=== PATIENT | male | born 1970 | race Caucasian/White ===

== ENCOUNTER 2022-10-16 14:58 | Emergency (ER) | payer BC ==
[2022-10-16 15:31] LABS: Urine Blood Negative (Negative); Urine Glucose Negative (Negative); Urine Protein Negative (Negative); Urine Specific Gravity 1.015 (1.005-1.030); Urine pH 6.5 (5.0-7.0)
[2022-10-16] MEDS ORDERED: FAMOTIDINE 20 MG/2 ML VIAL IV ONE (15:34)
[2022-10-16] MEDS ORDERED: NA CHLORIDE 0.9% 1,000 ML ONE (15:34)
[2022-10-16] MEDS ORDERED: KETOROLAC 30 MG/ML INJ ONE (15:34)
[2022-10-16 15:41] LABS: Urine Bacteria None Seen /HPF (<20); Urine Mucus Slight /HPF (None Seen); Urine RBC <5 /HPF (None Seen)
[2022-10-16 15:47] LABS: Absolute Lymphocytes (CBC) 1.8 K/uL (0.7-4.9); Hematocrit 42.9 % (39.6-49.0); MCV 92.8 fL (80-100); MPV 7.5 fL (7.6-11.3); RBC Red Blood Cell Count 4.62 M/uL (4.33-5.43)
[2022-10-16 15:58] LABS: Albumin 3.6 g/dL (3.4-5.0); Bilirubin Total 0.3 mg/dL (0.2-1.0); Potassium 3.9 mmol/L (3.5-5.1); Protein, Total 6.8 g/dL (6.4-8.2)
--- NOTE | 2022-10-16 17:08 | RAD REPORT ---
EXAM DESCRIPTION: CTAbdomen Pelvis W Contrast - 10/16/2022 4:34 pm CLINICAL HISTORY: Abdominal pain. RLQ abdominal pain COMPARISON: <Comparisons> TECHNIQUE: Biphasic CT imaging of the abdomen and pelvis was performed with 100 ml non-ionic IV cont rast. All CT scans are performed using dose optimization technique as appropriate and may include automated exposure control or mA/KV adjustment according to patient size. FINDINGS: The lung bases are clear. The liver, spleen, pancreas, adrenal glands and kidneys are within normal limits. No bowel obstruction, free air, free fluid or abscess. There is edema and prominent lymph nodes in th e small bowel mesenteric noted. Very small appendix. No evidence of significant lymphadenopathy. No suspicious bony findings. IMPRESSION: Moderate mesenteric panniculitis pattern. Very small appendix is noted.
[2022-10-16] MEDS ORDERED: METRONIDAZOLE 500mg IVPB 500 MG/100 ML BAG IV ONE (17:16)
[2022-10-16] MEDS ORDERED: CIPROFLOXACIN 400mg IV 400 MG/200 ML BAG IV ONE (17:16)
--- NOTE | 2022-10-16 17:58 | ER ---
Nurse's Notes [facility] Name: Luke Holloway Age: 52 yrs Sex: Male : 1970 Arrival Date: 10/16/2022 Time: 15:01 Bed 10 Private MD: Diagnosis: Lower abdominal pain, unspecified;Nonspecific mesenteric lymphadenitis Presentation: 10/16 15:10 Chief complaint: Patient states: RLQ pain X 3 days, yesterday when I lifted something iw it made the pain worse, pain is from right hip to lower abdomen. Coronavirus screen: At this time, the client does not indicate any symptoms associated with coronavirus-19. Ebola Screen: Patient negative for fever greater than or equal to 101.5 degrees Fahrenheit, and additional compatible Ebola Virus Disease symptoms Patient denies exposure to infectious person. Patient denies travel to an Ebola-affected area in the 21 days before illness onset. No symptoms or risks identified at this time. Initial Sepsis Screen: Does the patient meet any 2 criteria? No. Patient's initial sepsis screen is negative. Does the patient have a suspected source of infection? No. Patient's initial sepsis screen is negative. Risk Assessment: Do you want to hurt yourself or someone else? Patient reports no desire to harm self or others. Onset of symptoms was October 13, 2022. 15:10 Method Of Arrival: Ambulatory iw 15:10 Acuity: MICHAEL 3 iw Historical: - Allergies: 15:12 PENICILLINS; iw - Home Meds: 15:12 None [Active]; iw - PMHx: 15:12 None; iw - PSHx: 15:12 None; iw - Immunization history:: Client reports having NOT received the Covid vaccine. - Social history:: Smoking status: Patient reports the use of cigarette tobacco products, smokes one pack cigarettes per day. Screenin:[facility] ED Fall Risk Assessment (Adult) Score/Fall Risk Level 0 - 2 = Low Risk ll1 Oriented to surroundings, Maintained a safe environment, Educated pt \T\ family on fall prevention, incl call for assistance when getting out of bed, Hourly rounding (assess needs \T\ fall precautionary measures) done. Abuse screen: Denies threats or abuse. Nutritional screening: No deficits noted. Tuberculosis screening: No symptoms or risk factors identified. Assessment: 15:30 General: Appears in no apparent distress. Behavior is calm, cooperative, appropriate ll1 for age. Pain: Complains of pain in right lower quadrant Pain currently is 3 out of 10 on a pain scale. Quality of pain is described as aching. Neuro: No deficits noted. Cardiovascular: No deficits noted. GI: Abdomen is flat, Bowel sounds present X 4 quads. Abd is soft and non tender X 4 quads. Reports lower abdominal pain. 16:40 Reassessment: No changes from previously documented assessment. Patient and/or family ll1 updated on plan of care and expected duration. Pain level reassessed. Patient is alert, oriented x 3, equal unlabored respirations, skin warm/dry/pink. back from CT. 17:21 Reassessment: No changes from previously documented assessment. Patient and/or family ll1 updated on plan of care and expected duration. Pain level reassessed. Patient is alert, oriented x 3, equal unlabored respirations, skin warm/dry/pink. 17:57 Reassessment: No changes from previously documented assessment. Patient and/or family ll1 updated on plan of care and expected duration. Pain level reassessed. Patient is alert, oriented x 3, equal unlabored respirations, skin warm/dry/pink. 18:34 Reassessment: No changes from previously documented assessment. Patient and/or family ll1 updated on plan of care and expected duration. Pain level reassessed. Patient is alert, oriented x 3, equal unlabored respirations, skin warm/dry/pink. 19:04 Reassessment: No changes from previously documented assessment. Patient and/or family ll1 updated on plan of care and expected duration. Pain level reassessed. Patient is alert, oriented x 3, equal unlabored respirations, skin warm/dry/pink. Vital Signs: 15:10 BP 134 / 72; Pulse 71; Resp 16; Temp 99.0; Pulse Ox 99% on R/A; Weight 99.79 kg; Height iw 6 ft. 1 in. (185.42 cm); Pain 3/10; 18:34 BP 122 / 70; Pulse 65; Resp 16; Pulse Ox 98% ; Pain 0/10; ll1 15:10 Body Mass Index 29.03 (99.79 kg, 185.42 cm) iw ED Course: 15:01 Patient arrived in ED. mr 15:02 Brianne Guerra FNP-C [facility]. snw 15:02 Hung Moss MD is Attending Physician. snw 15:11 Triage completed. iw 15:11 Arm band placed on. iw 15:18 Krishan Jarvis, OSWALDO is Primary Nurse. ll1 15:30 Inserted saline lock: 22 gauge in left antecubital area, using aseptic technique. Blood ll1 collected. 16:36 CT Abd/Pelvis - IV Contrast Only In Process Unspecified. EDMS 16:39 No provider procedures requiring assistance completed. ll1 16:40 Patient has correct armband on for positive identification. Bed in low position. Call ll1 light in reach. Cardiac monitoring not applicable on this patient. 19:04 IV discontinued, intact, bleeding controlled, No redness/swelling at site. Pressure ll1 dressing applied. Administered Medications: 15:39 Drug: NS 0.9% 1000 ml Route: IV; Rate: 1 bolus; Site: left antecubital; ll1 17:20 Follow up: Response: No adverse reaction; IV Status: Completed infusion; IV Intake: ll1 1000ml 15:39 Drug: Pepcid (famotidine) 20 mg Route: IVP; Site: left antecubital; ll1 17:21 Follow up: Response: No adverse reaction ll1 15:39 Drug: TORadol - (ketorolac) 15 mg Route: IVP; Site: left antecubital; ll1 17:21 Follow up: Response: No adverse reaction; Pain is decreased; RASS: Alert and Calm (0) ll1 17:20 Drug: Flagyl (metroNIDAZOLE) 500 mg Volume: 100 ml; Route: IVPB; Rate: 200 ml/hr; ll1 Infused Over: 30 mins; Site: left antecubital; 17:56 Follow up: Response: No adverse reaction; IV Status: Completed infusion; IV Intake: ll1 100ml 17:57 Drug: Cipro (ciprofloxacin) 400 mg Volume: 200 ml; Route: IVPB; Infused Over: 60 mins; ll1 Site: left antecubital; 19:03 Follow up: Response: No adverse reaction; IV Status: Completed infusion; IV Intake: ll1 200ml Medication: 16:40 VIS not applicable for this client. ll1 Intake: 17:20 IV: 1000ml; Total: 1000ml. ll1 17:56 IV: 100ml; Total: 1100ml. ll1 19:03 IV: 200ml; Total: 1300ml. ll1 Outcome: 17:58 Discharge ordered by . amanda 19:04 Discharged to home ambulatory. ll1 19:04 Condition: stable 19:04 Discharge instructions given to patient, Instructed on discharge instructions, follow up and referral plans. no drinking with medication, no driving heavy equipment, medication usage, Demonstrated understanding of instructions, follow-up care, medications, Prescriptions given X 3. 19:04 Patient left the ED. 1 Signatures: Dispatcher [employer] EDMS Brianne Guerra, BEE[employer] CATTLE FARMER-C BEEF CATTLE FARMER-Sharon Gurrola Irene, RN OSWALDO iw Krishan Jarvis RN RN ll1
--- NOTE | 2022-10-16 17:58 | EDPHYS ---
Physician Documentation [facility] Name: Luke Holloway Age: 52 yrs Sex: Male : 1970 Arrival Date: 10/16/2022 Time: 15:01 Bed 10 Private MD: ED Physician Hung Moss HPI: 10/16 15:18 This 52 yrs old Male presents to ER via Ambulatory with complaints of Abdominal Pain. snw 15:18 The patient presents with abdominal pain in the lower abdomen, right lower quadrant. snw Onset: The symptoms/episode began/occurred acutely, 4 day(s) ago, and became persistent. The symptoms do not radiate. Associated signs and symptoms: Pertinent positives: tenderness to RLQ, mild wrap around pain. Severity of pain: At its worst the pain was moderate. The patient has not experienced similar symptoms in the past, but family has similar symptoms, son. The patient has not recently seen a physician. Historical: - Allergies: 15:12 PENICILLINS; iw - Home Meds: 15:12 None [Active]; iw - PMHx: 15:12 None; iw - PSHx: 15:12 None; iw - Immunization history:: Client reports having NOT received the Covid vaccine. - Social history:: Smoking status: Patient reports the use of cigarette tobacco products, smokes one pack cigarettes per day. ROS: 15:19 Constitutional: Negative for fever, chills, and weight loss, Eyes: Negative for injury, snw pain, redness, and discharge, ENT: Negative for injury, pain, and discharge, Neck: Negative for injury, pain, and swelling, Cardiovascular: Negative for chest pain, palpitations, and edema, Respiratory: Negative for shortness of breath, cough, wheezing, and pleuritic chest pain, Back: Negative for injury and pain, : Negative for injury, bleeding, discharge, and swelling, MS/Extremity: Negative for injury and deformity, Skin: Negative for injury, rash, and discoloration, Neuro: Negative for headache, weakness, numbness, tingling, and seizure, Psych: Negative for depression, anxiety, suicide ideation, homicidal ideation, and hallucinations. 15:19 Abdomen/GI: Positive for abdominal pain, worse on squatting, lifting, no noted protrusions. Exam: 15:17 Constitutional: This is a well developed, well nourished patient who is awake, alert, snw and in no acute distress. Head/Face: Normocephalic, atraumatic. Eyes: Pupils equal round and reactive to light, extra-ocular motions intact. Lids and lashes normal. Conjunctiva and sclera are non-icteric and not injected. Cornea within normal limits. Periorbital areas with no swelling, redness, or edema. ENT: Nares patent. No nasal discharge, no septal abnormalities noted. Tympanic membranes are normal and external auditory canals are clear. Oropharynx with no redness, swelling, or masses, exudates, or evidence of obstruction, uvula midline. Mucous membranes moist. Neck: Trachea midline, no thyromegaly or masses palpated, and no cervical lymphadenopathy. Supple, full range of motion without nuchal rigidity, or vertebral point tenderness. No Meningismus. Chest/axilla: Normal chest wall appearance and motion. Nontender with no deformity. No lesions are appreciated. Cardiovascular: Regular rate and rhythm with a normal S1 and S2. No gallops, murmurs, or rubs. Normal PMI, no JVD. No pulse deficits. Respiratory: Lungs have equal breath sounds bilaterally, clear to auscultation and percussion. No rales, rhonchi or wheezes noted. No increased work of breathing, no retractions or nasal flaring. Back: No spinal tenderness. No costovertebral tenderness. Full range of motion. Skin: Warm, dry with normal turgor. Normal color with no rashes, no lesions, and no evidence of cellulitis. MS/ Extremity: Pulses equal, no cyanosis. Neurovascular intact. Full, normal range of motion. Neuro: Awake and alert, GCS 15, oriented to person, place, time, and situation. Cranial nerves II-XII grossly intact. Motor strength 5/5 in all extremities. Sensory grossly intact. Cerebellar exam normal. Normal gait. Psych: Awake, alert, with orientation to person, place and time. Behavior, mood, and affect are within normal limits. 15:17 Abdomen/GI: Inspection: abdomen appears normal, Bowel sounds: normal, Palpation: mild abdominal tenderness, in the right lower quadrant, no appreciated organomegaly. Vital Signs: 15:10 BP 134 / 72; Pulse 71; Resp 16; Temp 99.0; Pulse Ox 99% on R/A; Weight 99.79 kg; Height iw 6 ft. 1 in. (185.42 cm); Pain 3/10; 18:34 BP 122 / 70; Pulse 65; Resp 16; Pulse Ox 98% ; Pain 0/10; ll1 15:10 Body Mass Index 29.03 (99.79 kg, 185.42 cm) iw MDM: 15:10 Patient medically screened. snw 15:20 Differential diagnosis: appendicitis, diverticulitis, urinary tract infection. Data snw reviewed: vital signs, nurses notes. Care significantly affected by the following chronic conditions: none. Care significantly affected by the following Social Determinants of Health: +smoker. Awaiting: CT scan results. 10/16 15:15 Order name: CBC with Diff; Complete Time: 16:00 snw 10/16 15:15 Order name: CMP; Complete Time: 16:00 snw 10/16 15:15 Order name: Lipase; Complete Time: 16:00 snw 10/16 15:15 Order name: Urine Microscopic Only; Complete Time: 15:46 snw 10/16 15:15 Order name: CT Abd/Pelvis - IV Contrast Only; Complete Time: 17:09 snw 10/16 15:31 Order name: Urine Dipstick-Ancillary; Complete Time: 15:46 EDMS 10/16 15:15 Order name: IV Saline Lock; Complete Time: 15:26 snw 10/16 15:15 Order name: Labs collected and sent; Complete Time: 15:26 snw Administered Medications: 15:39 Drug: NS 0.9% 1000 ml Route: IV; Rate: 1 bolus; Site: left antecubital; ll1 17:20 Follow up: Response: No adverse reaction; IV Status: Completed infusion; IV Intake: ll1 1000ml 15:39 Drug: Pepcid (famotidine) 20 mg Route: IVP; Site: left antecubital; ll1 17:21 Follow up: Response: No adverse reaction ll1 15:39 Drug: TORadol - (ketorolac) 15 mg Route: IVP; Site: left antecubital; ll1 17:21 Follow up: Response: No adverse reaction; Pain is decreased; RASS: Alert and Calm (0) ll1 17:20 Drug: Flagyl (metroNIDAZOLE) 500 mg Volume: 100 ml; Route: IVPB; Rate: 200 ml/hr; ll1 Infused Over: 30 mins; Site: left antecubital; 17:56 Follow up: Response: No adverse reaction; IV Status: Completed infusion; IV Intake: ll1 100ml 17:57 Drug: Cipro (ciprofloxacin) 400 mg Volume: 200 ml; Route: IVPB; Infused Over: 60 mins; ll1 Site: left antecubital; 19:03 Follow up: Response: No adverse reaction; IV Status: Completed infusion; IV Intake: ll1 200ml Disposition: 19:17 Co-signature as Attending Physician, Hung Moss MD I agree with the assessment and kdr plan of care. Disposition Summary: 10/16/22 17:58 Discharge Ordered Location: Home snw Condition: Stable snw Diagnosis - Lower abdominal pain, unspecified snw - Nonspecific mesenteric lymphadenitis snw Followup: snw - With: Emergency Department - When: As needed - Reason: Worsening of condition Followup: snw - With: Private Physician - When: 5 - 6 days - Reason: Recheck today's complaints, Continuance of care, Re-evaluation by your physician Discharge Instructions: - Discharge Summary Sheet snw - Abdominal Pain, Adult snw - Mesenteric Adenitis, Pediatric snw - [place] Diet snw Forms: - Medication Reconciliation Form snw - Thank You Letter snw - Antibiotic Education snw - Prescription Opioid Use snw - Work release form snw Prescriptions: - Flagyl 500 mg Oral Tablet - take 1 tablet by ORAL route every 12 hours for 7 days; 14 tablet; Refills: 0, snw Product Selection Permitted - Mobic 7.5 mg Oral Tablet - take 1 tablet by ORAL route once daily take with food; 20 tablet; Refills: 0, snw Product Selection Permitted - Cipro 500 mg Oral Tablet - take 1 tablet by ORAL route every 12 hours for 7 days; 14 tablet; Refills: 0, snw Product Selection Permitted Signatures: Dispatcher [employer] Hung Clements MD MD kdr Waters, Shelly, FNP-C FNP-Jumana Lux, RN RN iw Krishan Jarvis RN RN ll1
[2022-10-16 19:50] VITALS: TEMP 99
[2022-10-16 20:00] VITALS: BP 122/70; O2SAT 98
== END 2022-10-16 19:04 | disposition home or self-care (01) ==
LOC: ER 14:58
DX: R10.30 Lower abdominal pain, unspecified (principal); I88.0 Nonspecific mesenteric lymphadenitis; F17.210 Nicotine dependence, cigarettes, uncomplicated; Z88.0 Allergy status to penicillin
CPT/HCPCS: 85025; 36415; 83690; 80053; 74177; Q9967; J7030; J0744; 81003; 81015